=== PATIENT | female | born 1955 | race Caucasian/White ===

== ENCOUNTER 2019-08-30 08:34 | Emergency (ER) | payer BC ==
--- OUTSIDE RECORDS SUMMARY | 2019-08-30 08:50 | XMS REPORT | Continuity of Care Document ---
:1955 External Reference #:[id number] Author Name Charlene Prado MD Address [address] [facility] [place], [place], [address] [place] [address] Care Team Providers Name Role Phone Dalila Ga MD - Internal Medicine Care Team Information Home Sales Consultant Oh, In-MD Nam - Obstetrics & Care Team Information Home Sales Consultant Gynecology Jes Perrin MD, PHD - Family Care Team Information Home Sales Consultant [phone] Medicine Problems Active Problems Provider Date Pure hypercholesterolemia Dalila Ga MD Onset: 09/22/2017 Gastroesophageal reflux disease Jes Perrin MD, PHD Onset: 05/03/2019 Counseling about tobacco use Jes Perrin MD, PHD Onset: 04/28/2019 Diarrhea Jes Perrin MD, PHD Onset: 04/28/2019 Right upper quadrant pain Jes Perrin MD, PHD Onset: 04/28/2019 Renal agenesis and dysgenesis Dalila Ga MD Onset: 09/28/2017 Social History Type Date Description Comments Sex Unknown ETOH Use Denies alcohol use Tobacco Use Start: Unknown Patient is a current 1/2 ppd, AGE 27 smoker, smokes every day YEARS Recreational Drug Use Never Used Drugs Smoking Status Reviewed: 08/16/19 Patient is a current 1/2 ppd, AGE 27 smoker, smokes every day YEARS Allergies, Adverse Reactions, Alerts Active Allergies Reaction Severity Comments Date Contrast Dye Dropped BP 09/28/2017 Medications Active Medications SIG Qnty Indications Ordering Date Provider Esomeprazole take 1 tab twice 180caps K21.9 Charlene Prado, 08/16/2019 Magnesium daily, 30 minutes 20mg Capsules before meals DR Raya 1/2-1 tab by 90tabs K21.0 Jes Perrin, 05/03/2019 1gm Tablets mouth four times , PHD a day as needed for heartburn or nausea R10.11 Z71.6 Estroblend 1 po qod Dalila Ga MD 09/28/2017 Loratadine 1 by mouth every day Unknown 10mg Capsules History Medications Suprep Bowel Prep Kit Complete first 354ml Z12.11 Charlene Prado, 2018 - part of prep the MD 07/01/2019 17.5-3.13-1.6GM/177ML evening before Solution procedure and second part at least 4 hours before your procedure time Gas Relief take 1 tab day 2units Z12.11 Charlene Prado, 05/13/2019 - 80mg Chewtabs before MD 07/01/2019 colonoscopy and 1 tab day of colonoscopy early in the am Esomeprazole Magnesium take 1 capsule 30caps K21.0 Charlene Prado, 2018 - 20mg by mouth every MD 08/16/[address] day 30 mins before meals R10.11 Z71.6 Ondansetron HCL 1 tab by mouth 30tabs R10.11 Jes Perrin, 04/28/2019 - 4mg every 6 hours , PHD 05/03/2019 Tablets as needed for nausea Ciprofloxacin HCL 1 tab by mouth 14tabs R10.11 Jes Perrin, 2018 - 500mg twice a day , PHD 05/03/2019 Tablets Metronidazole 1 tab by mouth 21tabs R10.11 Jes Perrin, 04/28/2019 - 500mg three times a , PHD 05/03/2019 Tablets day after meals Immunizations CPT Code Status Date Vaccine Lot # [id number] Refused 04/28/2019 Influenza Virus Vaccine, Quadrivalent, 36 Mos+, .5ML Vital Signs Date Vital Result Comment 08/16/2019 8:32am BP Systolic Sitting Left Arm 119 mmHg BP Diastolic Sitting Left Arm 71 mmHg Body Temperature 97.4 F Heart Rate 73 /min Respiratory Rate 16 /min Height 64 inches 5'4" Weight 121.00 lb Pain Level 0 BMI (Body Mass Index) 20.8 kg/m2 BSA (Body Surface Area) 1.58 m2 [place] body weight in kilograms 54 kg O2 % BldC Oximetry 100 % 05/13/2019 4:00pm BP Systolic Sitting Left Arm 141 mmHg BP Diastolic Sitting Left Arm 71 mmHg Body Temperature 97.4 F Heart Rate 72 /min Respiratory Rate 14 /min Height 64 inches 5'4" Weight 119.00 lb BMI (Body Mass Index) 20.4 kg/m2 BSA (Body Surface Area) 1.57 m2 [place] body weight in kilograms 54 kg O2 % BldC Oximetry 98 % Results Test Acquired Date Facility Test Result H/L Range Note LDL Cholesterol 05/03/2019 [facility] Cholesterol 242 mg/dL High <200 1, [address] [place] [address] [phone] Triglycerides 145 mg/dL <150 3 HDL Cholesterol 58 mg/dL >40 4 LDL-Cholesterol 155 mg/dL < 100 5 H Pylori,Igm,Igg,Iga 05/03/2019 [facility] Helicobacter 0.11 0.00-0.79 [address] Pylori, Igg u/[place] [address] [phone] Helicobacter Pylori, Iga Abs < 9.0 units 0.0-8.9 7 Helicobacter Pylori, Igm Abs < 9.0 units 0.0-8.9 8 CBC W/Automated 04/28/2019 [facility] White Blood 8.1 K/uL Normal 3.1-10.7 [address] [place] [address] [phone] Red Blood Count 5.48 M/uL High 3.90-5.40 Hemoglobin 15.5 gm/dL Normal 11.6-15.8 Hematocrit 46.8 % High 36.0-46.1 Mean Cell Volume 85.4 fl Normal 80.9-99.0 Mean Corpuscular HGB 28.3 pg Normal 25.9-32.7 Mean Corpuscular HGB Conc 33.1 g/dL Normal 30.8-34.3 Platelet Count 240 K/uL Normal 155-360 Red Cell Distri Width SD 42.5 fl Normal 36-47 Red Cell Distri Width %CV 13.6 % Normal 11.7-14.4 Mean Platelet Volume 10.5 fl Normal 8.9-12.4 Neut% 49.7 % Normal 40.4-72.8 Lymph % 37.9 % Normal 20.0-42.0 [place] % 8.8 % Normal 4.3-13.2 Eo% 2.7 % Normal 0.0-6.6 Bas% 0.5 % Normal 0.0-1.1 Immature Grans 0.4 % Normal 0.0-5.0 NRBC % 0.0 /100WBC < 10/ 100 WBC Neut# 4.04 K/uL Normal 1.8-7.0 Lymph # 3.07 K/uL Normal 1.0-4.0 [place] # 0.71 K/uL Normal 0.3-0.9 Eos # 0.22 K/uL Normal 0.0-0.5 Baso # 0.04 K/uL Normal 0.0-0.1 Immature Grans Absolute 0.03 K/uL NRBC # 0.00 K/uL Comprehensive 04/28/2019 [facility] Glucose 88 mg/dL Normal 74-106 Metabolic Panel [address] [place] [address] [phone] BUN 20 mg/dL High 7-18 Creatinine 1.0 mg/dL Normal 0.6-1.3 Glom Filtration Rate, Estimate 60 mL/min >60 If >60 mL/min >60 10 BUN/Creat 20.0 ratio Sodium 138 mmol/L Normal 136-145 Potassium 4.3 mmol/L Normal 3.5-5.1 Chloride 106 mmol/L Normal 98-107 Carbon Dioxide 28 mmol/L Normal 21-32 Anion Gap 4 mEq/L Low 8-16 Calcium 9.5 mg/dL Normal 8.5-10.1 Total Protein 7.8 g/dL Normal 6.4-8.2 Albumin 4.4 g/dL Normal 3.4-5.0 Globulin 3.4 g/dL Normal 1.9-4.3 Alb/Glob 1.3 ratio Bilirubin,Total 0.2 mg/dL Normal 0.2-1.0 Sgot/Ast 18 U/L Normal 15-37 SGPT/Alt 26 U/L Normal 12-78 Alkaline Phosphatase 89 U/L Normal 45-117 Ua RFX Micro & 04/28/2019 [facility] Urine Color Colorless Yellow Culture II [address] [place] [address] [phone] Urine Clarity Clear Clear Urine Glucose - Dipstick NEGATIVE mg/dL Negative Urine Bilirubin - Dipstick NEGATIVE Negative Urine Ketone NEGATIVE mg/dL Negative Urine Specific [place] < 1.005 Low 1.010-1.030 Urine Blood NEGATIVE 0-2 Urine PH 6.0 Low 6.5-7.5 Urine Protein - Dipstick NEGATIVE mg/dL Negative Urine Urobilinogen - Dipstick < 2.0 mg/dL < 2.0 Urine Nitrite - Dipstick NEGATIVE Negative Urine Leuk Esterase NEGATIVE Negative Laboratory test 04/28/2019 [facility] Amylase 106 U/L Normal 25-115 11 finding [address] [place] [address] [phone] Urine Culture 04/28/2019 [facility] Urine URETHRAL [address] [facility] [place] [address] [phone] Quantity 10,000 - 100,000 <SEE NOTE> 12 Basic Metabolic Panel 03/01/2019 [facility] Glucose 95 mg/dL Normal 74-106 13 [address] [place] [address] [phone] BUN 22 mg/dL High 7-18 Creatinine 1.1 mg/dL Normal 0.6-1.3 Glom Filtration Rate, Estimate 54 mL/min >60 If >60 mL/min >60 14 BUN/Creat 20.0 ratio Sodium 140 mmol/L Normal 136-145 Potassium 4.5 mmol/L Normal 3.5-5.1 Chloride 107 mmol/L Normal 98-107 Carbon Dioxide 29 mmol/L Normal 21-32 Anion Gap 4 mEq/L Low 8-16 Calcium 9.3 mg/dL Normal 8.5-10.1 Ua RFX Micro & Culture 03/01/2019 [facility] Urine Color YELLOW Yellow II [address] [place] [address] [phone] Urine Clarity CLEAR Clear Urine Glucose - Dipstick NEGATIVE mg/dL Negative Urine Bilirubin - Dipstick NEGATIVE Negative Urine Ketone NEGATIVE mg/dL Negative Urine Specific [place] 1.010 Normal 1.010-1.030 Urine Blood NEGATIVE Negative Urine PH 6.0 Low 6.5-7.5 Urine Protein - Dipstick NEGATIVE mg/dL Negative Urine Urobilinogen - Dipstick 0.2 E.U./dL Normal 0.2-1.0 Urine Nitrite - Dipstick NEGATIVE Negative Urine Leuk Esterase NEGATIVE Negative 1 Z13.220 K21.9 2 Reference Guidelines*: Desirable: ........... < 200 mg/dL Borderline High: ..... 200-239 mg/dL High: ................ >= 240 mg/dL * The National Cholesterol Education Program (NCEP) 3 Reference Guidelines*: Normal: ............. < 150 mg/dL Borderline High: .... 150-199 mg/dL High: ............... 200-499 mg/dL Very High: .......... > 500 mg/dL * Source: National Cholesterol Education Program (NCEP) 4 Reference Guidelines*: Low HDL: ..... < 40 mg/dL Normal: ..... 40-60 mg/dL Desirable: ... > 60 mg/dL *The National Cholesterol Education Program(NCEP) 5 Reference Guidelines*: Optimal:........... <100 mg/dL Near Optimal....... 100-129 mg/dL Borderline High.... 130-159 mg/dL High............... 160-189 mg/dL Very High.......... >=190 mg/dL * Source: National Cholesterol Education Program (NCEP) 6 INFCE Result Units: Index Value Negative <0.80 Equivocal 0.80 - 0.89 Positive >0.89 7 Negative <9.0 Equivocal 9.0 - 11.0 Positive >11.0 8 Negative <9.0 Equivocal 9.0 - 11.0 Positive >11.0 This test was developed and its performance characteristics determined by [facility]. It has not been cleared or approved by the Food and Drug Administration. Performed at: RN - [facility] [address] [id number] Edger Technician: Dodie Bruce MD, Phone: [phone] 9 r10.11 10 Note: Persistent reduction for 3 months or more in an eGFR <60 mL/min/1.73 m2 defines CKD. Patients with eGFR values >/=60 mL/min/1.73 m2 may also have CKD if evidence of persistent proteinuria is present. The original MDRD equation for estimated GFR is not valid for patients less than 18 years of age. Additional information may be found at www.[facility].org. 11 STAT 12 10,000 - 100,000 CFU/mL 13 Q60.0 14 Note: Persistent reduction for 3 months or more in an eGFR <60 mL/min/1.73 m2 defines CKD. Patients with eGFR values >/=60 mL/min/1.73 m2 may also have CKD if evidence of persistent proteinuria is present. The original MDRD equation for estimated GFR is not valid for patients less than 18 years of age. Additional information may be found at www.kdoqi.org. Procedures Date Code Description Status 06/29/2019 83310 Colonoscopy With Polypectomy Completed 06/29/2019 70463 Colonoscopy,W/Directed Submucosal Injections, Any Completed Substance 06/29/2019 59527 Colonoscopy With Biopsy Completed 06/29/2019 68044 EGD With Biopsy Completed 06/29/2019 26762983 Colonoscopy Completed Medical Devices Description No Information Available Encounters Type Date Location Provider Dx Diagnosis Office Visit 05/13/2019 GI Charlene Prado MD K21.9 Gastro-esophageal 4:00p reflux disease without esophagitis Z12.11 Encounter for screening for malignant neoplasm of colon Office Visit 05/03/2019 Family Perrin K21.9 Gastro-esophageal 8:30a Annalisa Andre MD, reflux disease without Main PHD esophagitis K21.9 Gastro-esophageal reflux disease without esophagitis R10.11 Right upper quadrant pain R10.11 Right upper quadrant pain Z13.220 Encounter for screening for lipoid disorders Z13.220 Encounter for screening for lipoid disorders Z71.6 Tobacco abuse counseling Z71.6 Tobacco abuse counseling Office Visit 04/28/2019 1:00p Jes Romero, R10.11 Right nazario Santiago MD, PHD quadrant pain Q60.0 Renal agenesis, unilateral R19.7 Diarrhea, unspecified Z71.6 Tobacco abuse counseling Assessments Date Code Description Provider 08/16/2019 K21.9 Gastro-esophageal reflux disease without Charlene Prado MD esophagitis 08/16/2019 K25.9 Gastric ulcer, unspecified as acute or Charlene Prado MD chronic, without hemorrhage or perforation 08/16/2019 K63.5 Polyp of colon Charlene Prado MD 08/16/2019 R14.1 Gas pain Charlene Prado MD 06/29/2019 Z12.11 Encounter for screening for malignant Charlene Prado MD neoplasm of colon 06/29/2019 D12.0 Benign neoplasm of cecum Charlene Prado MD 06/29/2019 K63.5 Polyp of colon Charlene Prado MD 06/29/2019 K29.50 Unspecified chronic gastritis without Charlene Prado MD bleeding 06/20/2019 K21.9 Gastro-esophageal reflux disease without IannottaErnesto PA esophagitis 06/20/2019 Z12.11 Encounter for screening for malignant [place] PA neoplasm of colon 06/20/2019 Z01.818 Encounter for other preprocedural IannottaErnesto PA examination 05/13/2019 K21.9 Gastro-esophageal reflux disease without Charlene Prado MD esophagitis 05/13/2019 Z12.11 Encounter for screening for malignant Charlene Prado MD neoplasm of colon 05/03/2019 K21.9 Gastro-esophageal reflux disease without Jes Perrin MD, PHD esophagitis 05/03/2019 K21.9 Gastro-esophageal reflux disease without Jes Perrin MD, PHD esophagitis 05/03/2019 R10.11 Right upper quadrant pain Jes Perrin MD, PHD 05/03/2019 R10.11 Right upper quadrant pain Jes Perrin MD, PHD 05/03/2019 Z13.220 Encounter for screening for lipoid Jes Perrin MD, PHD disorders 05/03/2019 Z13.220 Encounter for screening for lipoid Jes Perrin MD, PHD disorders 05/03/2019 Z71.6 Tobacco abuse counseling Jes Perrin MD, PHD 05/03/2019 Z71.6 Tobacco abuse counseling Jes Perrin MD, PHD 04/28/2019 R10.11 Right upper quadrant pain Jes Perrin MD, PHD 04/28/2019 Q60.0 Renal agenesis, unilateral Jes Perrin MD, PHD 04/28/2019 R19.7 Diarrhea, unspecified Jes Perrin MD, PHD 04/28/2019 Z71.6 Tobacco abuse counseling Jse Perrin MD, PHD Plan of Treatment 08/16/2019 - Charlene Prado MDK21.9 Gastro-esophageal reflux disease without esophagitisNew Medication:Esomeprazole Magnesium 20 mg - take 1 tab twice daily , 30 minutes before mealsComments:Recommended increasing esomeprazole 20 mg from once daily to twice daily, 30 minutes before mealsAntireflux lifestyle modifications discussedPrescription refilledFollow up:PPI dosage increased Repeat EGD in 3-6 months Follow-up in 3 months Repeat colonoscopy in 3 [id number] Gastric ulcer, unspecified as acute or chronic, without hemorrhage or perforationComments:Repeat EGD in 3-6 months to evaluate for ulcer [id number] Polyp of colonComments:Repeat colonoscopy in 3 years according to nxneggpszoU89.1 Gas painComments:Provided FODMAP handout Functional Status Description No Information Available Mental Status Description No Information Available Referrals Refer to Reason for Referral Status Appt Date Charlene Prado MD Hx of GERD, R upper quadrant pain, sour taste in Closed 05/13/2019 mouth, pain worse upon awakening and 2 hrs post eating. [address], [address] [place] [address] [phone] Delon, In-MD Nam Patient wanted a referral as she thinks she has Scheduled a prolapse 02/21/19 faxed notes... [address] [place], [place] [id number] [phone]
[2019-08-30 09:01] VITALS: BP 123/66
--- NOTE | 2019-08-30 10:19 | UC ---
Respiratory Complaint HPI - HPI Summary HPI Summary: cough x 5 days cough is productive , started with yellow / green sputum no seeing some blood, + nasal congestion, pnd fever, chills, body aches, was seen by her pcp 3 days ago , Dx with Flue no getting better, no sob - History of Current Complaint Chief Complaint: UCRespiratory Stated Complaint: DX-FLU,COUGH WITH BLOOD,LOW ENERGY Time Seen by Provider: 08/30/19 09:10 Hx Obtained From: Patient Onset/Duration: Sudden Onset, Lasting Days - 5, Still Present Timing: Constant Severity Initially: Moderate Severity Currently: Moderate Pain Intensity: 0 Character: Cough: Productive Aggravating Factors: Exertion, Deep Breaths Alleviating Factors: Nothing Associated Signs And Symptoms: Positive: Fever, Chills, Pleuritic Chest Pain, URI, Nasal Congestion. Negative: Dyspnea, Wheezing, Hemoptysis, Dizziness, Calf Pain, Calf Swelling - Allergies/Home Medications Allergies/Adverse Reactions: Allergies Allergy/AdvReac Type Severity Reaction Status Date / Time Contrast Dye AdvReac See Comment Uncoded 08/30/19 09:01 Home Medications: Home Medications Esomeprazole Magnesium [Nexium 24Hr] 20 mg PO DAILY 08/30/19 [History Confirmed 08/30/19] Loratadine [Claritin 10 MG CAP] 10 mg PO DAILY 08/30/19 [History Confirmed 08/30] Multivit/Folic Acid/Herbal 223 [Estroven] 1 tab PO DAILY 08/30/19 [History Confirmed 08/30/19] Sucralfate [Carafate] 1 gm PO Q8HR PRN 08/30/19 [History Confirmed 08/30/19] PMH/Surg Hx/FS Hx/Imm Hx Respiratory History: COPD - Surgical History Surgical History: Yes Surgery Procedure, Year, and Place: Cholecystectomy, ~1984, [place]; Left Ovarian Cystectomy, 1977, [place] - Family History Known Family History: Positive: None, Non-Contributory - Social History Alcohol Use: None Substance Use Type: None Smoking Status (MU): Heavy Every Day Tobacco Smoker Type: Cigarettes Amount Used/How Often: 1/2 PPD Length of Time of Smoking/Using Tobacco: 23 Years Have You Smoked in the Last Year: Yes Household Exposure Type: Cigarettes Review of Systems All Other Systems Reviewed And Are Negative: Yes Constitutional: Positive: Fever, Chills, Fatigue Skin: Positive: Negative Eyes: Positive: Negative ENT: Positive: Sore Throat, Nasal Discharge Respiratory: Positive: Cough Cardiovascular: Positive: Negative Is Patient Immunocompromised?: No Physical Exam Triage Information Reviewed: Yes Appearance: Well-Appearing, No Pain Distress, Well-Nourished Vital Signs: Initial Vital Signs Temp 98.2 F 08/30/19 08:57 Pulse 73 08/30/19 08:57 Resp 17 08/30/19 08:57 BP 123/66 08/30/19 08:57 Pulse Ox 100 08/30/19 08:57 Vital Signs Reviewed: Yes Eye Exam: Normal Eyes: Positive: Conjunctiva Clear ENT: Positive: Normal ENT inspection, Hearing grossly normal, Pharynx normal, Nasal congestion, TMs normal Neck: Positive: Supple, Nontender, No Lymphadenopathy Respiratory: Positive: Chest non-tender, Lungs clear, Normal breath sounds Cardiovascular: Positive: RRR, No Murmur, Pulses Normal Abdominal Exam: Normal Diagnostics - Radiology No standard instances Radiology Interpretation Completed By: Radiologist Summary of Radiographic Findings: chest xray repors: IMPRESSION: HYPERINFLATION , CONSISTENT WITH COPD. NO ACTIVE CARDIOPULMONARY DISEASE. Respiratory Course/Dx - Differential Dx/Diagnosis Provider Diagnosis: Influenza Discharge ED - Sign-Out/Discharge Documenting (check all that apply): Patient Departure, Post-Discharge Follow Up All imaging exams completed and their final reports reviewed: Yes - Discharge Plan Condition: Stable Disposition: HOME Patient Education Materials: Influenza (ED) Forms: *Work Release Referrals: Jes Perrin MD [Primary Care Provider] - 7 Days - Billing Disposition and Condition Condition: STABLE Disposition: Home
== END 2019-08-30 10:19 | disposition home or self-care (01) ==
LOC: UCCORT 08:34
DX: J11.1 Influenza due to unidentified influenza virus with other respiratory manifestations (principal); J44.9 Chronic obstructive pulmonary disease, unspecified; Z91.041 Radiographic dye allergy status; F17.210 Nicotine dependence, cigarettes, uncomplicated
CPT/HCPCS: 71046; 99211; G0463